=== PATIENT | female | born 1995 | race Caucasian/White ===

== ENCOUNTER 2018-08-21 18:45 | Inpatient (IN) ==
[2018-08-21 18:36] LABS: Basophils % 0.3 %; Eosinophils % 0.2 %; Hematocrit 35.5 % (35.3-44.9); Hemoglobin 12.3 g/dL (11.5-15.4); Immature Granulocytes % 0.7 % (0-4); Lymphocytes # 1.9 K/mcL (0.6-4.6); Lymphocytes % 12.9 %; Mean Corpuscular HGB Conc 34.6 g/dL (31.6-35.5); Mean Corpuscular Hemoglobin 29.9 pg (28.0-33.3); Mean Corpuscular Volume 86.2 fL (83.0-100.0); Mean Platelet Volume 10.4 fL (9.4-12.4); Monocytes % 6.4 %; Neutrophils # 11.8 K/mcL (1.6-8.9); Platelet Count 250 K/mcL (140-400); Red Blood Count 4.12 M/mcL (3.82-4.97); Segmented Neutrophils % 79.5 %
[~2018-08-21 18:45] MED LIST: *HR* Nalbuphine 10 MG/ML AMPUL IVP PRN; Famotidine 20 MG/2 ML VIAL IVP PRN; Naloxone 0.4 MG/ML INJ IVP PRN; Ondansetron 4 MG/2 ML VIAL IVP PRN; Ringers Solution, Lactated 1,000 ML IVC SCH
--- NOTE | 2018-08-21 18:52 | OB/GYN History & Physical ---
Date of Encounter: 08/21/18 Time of Encounter: 18:48 Assessment and Plan (1) 40 weeks gestation of Current visit: Yes Status: Acute admitted for delivery will augment labor if necessary Dr. Harrison aware of POC (2) Spontaneous rupture of membranes Current visit: Yes Status: Acute GBS Negative History of Present Illness Chief complaint: SROM HPI: Ms. Zavaleta is a 23 year old female at 40w2d presents to labor and delivery with complaints of SROM at 1525. Patient reports clear fluid and irregular con tractions with good movement. Patient denies any vaginal bleeding. Patient was a late transfer of care to the [facility]wives from [place]. Patient did have adequate care. Blood type: O positive Rubella: Immune Hep B: nonreactive GBS: Negative Past Med Surg Social Fam HX - Past Medical History Source: patient Medical history: no medical history Psychiatric history: no psych history - Past Surgical History Surgical History: other Additional surgical history: cyst removal - Social History Smoking Status: Never smoker Smokeless Tobacco Status: No Alcohol use: none Drug use: none Current living situation: Home - Independent Obstetrical History - Pregnancies : 1 Para: 0 Term: 0 : 0 Ab's: 0 Livin Medications and Allergies Acetaminophen [Tylenol] 325 mg PO Q6HR PRN 08/21/18 [History] Hair Skin Nails-Biotin Gummies 1 tab PO DAILY 08/21/18 [History] One-A-Day 1 Dha Sfgl 1 tab PO DAILY 08/21/18 [History] Allergy/AdvReac Type Severity Reaction Status Date / Time No Known Allergies Allergy Verified 08/21/18 18:21 Review of System OB - Constitutional Constitutional ROS IM: no chills, no fever(s), no headache(s) - Cardiovascular Cardiovascular: no chest pain, no leg edema, no lightheadedness, no palpitations, no pedal edema - Respiratory Respiratory: no dyspnea - Gastrointestinal Gastrointestinal: no constipation, no heartburn, no nausea, no vomiting - Genitourinary Genitourinary: no abnormal vaginal bleeding, no dysuria, no flank pain, no urinary urgency, no vaginal odor, no vaginal pruritis Exam - Constitutional Constitutional: well developed, well nourished, no acute distress, average body habitus - HEENT HEENT: Normocephaly, Mucus Membranes Moist - Neck Neck exam: full ROM, supple - Lungs Respiratory exam: CTAB - Cardiovascular Cardiovascular exam: RRR, +S1, +S2 - Abdomen Abdomen: Present: bowel sounds normal, gravid, non tender - Extremities Extremities exam: full ROM, normal capillary refill Deep Tendon Reflex Grade: 2+ Normal - Cervix Dilation: 2 Effacement: 90 Station: -1 - Uterus Uterus exam: Present: normal size, normal contour - Anus/Rectum Anus/Rectum: Present: normal perianal skin - Comments Comments: FHR 125 bpm moderate variability +15x15 accels late decel noted after patient returned for bathroom contractions 1.5-3 min apart. SVE, IUPC placed without difficulty, IV bolus infusing, O2 mask applied. Dr. Harrison updated on patient status. Results Result Diagrams: 08/21/18 18:03 Abnormal lab results WBC 14.8 K/mcL (4.3-11.1) H 08/21/18 18:03 Neutrophils # 11.8 K/mcL (1.6-8.9) H 08/21/18 18:03 All other labs normal. - VTE Reasons for not Prescribing Prophylaxis: Treatment not Indicated - Low risk for VTE
[2018-08-21 19:52] LABS: Amphetamine Screen,Urine Negative ng/mL (Cutoff=1000); Barbiturate Screen,Urine Negative ng/mL (Cutoff=200); Benzodiazepines Screen,Urine Negative ng/mL (Cutoff=200); Cannabinoid Screen,Urine Negative ng/mL (Cutoff = 50); Cocaine Screen,Urine Negative ng/mL (Cutoff= 300); Opiate Screen,Urine Negative ng/mL (Cutoff=300); Phencyclidine Screen,Urine Negative ng/mL (Cutoff=25)
[2018-08-21] MEDS ORDERED: miSOPROStol 25 MCG TABLET PO SCH (20:00)
[2018-08-21] MEDS ORDERED: Epidural Premix (fent/bupiv) 110 ML EP SCH (20:45)
--- NOTE | 2018-08-21 21:33 | Anesthesia Evaluation PreOp ---
Date of Encounter: 08/21/18 Time of Encounter: 20:56 - Past History Planned Operation: elder Cardiac History: Denies any Significant Hx Pulmonary History: Denies Any Significant HX REFORMATORY ATTENDANT History: Denies Any Significant HX Other Medical History: Denies Any Significant HX Anesthesia History: No Prior Anesthetic Complications : Yes Alcohol Use: none Drug use: none Medications and Allergies Acetaminophen [Tylenol] 325 mg PO Q6HR PRN 08/21/18 [History] Hair Skin Nails-Biotin Gummies 1 tab PO DAILY 08/21/18 [History] One-A-Day 1 Dha Sfgl 1 tab PO DAILY 08/21/18 [History] Allergy/AdvReac Type Severity Reaction Status Date / Time No Known Allergies Allergy Verified 08/21/18 18:21 - Meds/Allergy Pre-op Review Medications Reviewed: Yes Allergies Reviewed: Yes Beta Blockers on Current Med List: No Anesthesia Results - Labs 08/21/18 18:03 Anesthesia Exam 147/67 88 16 Height: 1.5 Weight: 68 NPO (# of Hours): mn Pain Scale: 7 - HEENT Pupil (Motor): Pupils equal Mallampati: II Teeth: Normal Oral Opening: Greater than 3 - REFORMATORY ATTENDANT LOC: Oriented REFORMATORY ATTENDANT Motor: Normal RUE, Normal LUE, Normal RLE, Normal LLE, Normal Face REFORMATORY ATTENDANT Sensory: Normal: RUE, LUE, RLE, LLE, Face - Cardiac Rhythm: Regular Murmur: None JVD: No Carotid Bruit: No - Pulmonary Breath Sounds: bilateral Clear Respiratory Effort: Symmetrical Anesthesia Assess/Plan ASA Score: 2 Level of consciousness: Cooperative Anesthetic Plan: Epidural
--- NOTE | 2018-08-21 21:37 | Anesthesia Procedures ---
Addendum entered and electronically signed by Cait Hanks CRNA 08/22/18 06:28: Delivery Date: 08/22/18 Delivery Time: 03:56 Original Note: Date of Encounter: 08/21/18 Time of Encounter: 20:56 Procedures: Anesthesia - Epidural/Spinal Patient ID/Chart reviewed: Yes Patient examined: Yes OB Eval: Gestational age: 40.2 OB Eval: : 1 OB Eval: Hx Para: 0 OB Eval: Contractions: Non-stressed pattern Consent Obtained: Yes Supplemental Oxygen: None/Room Air Site Prep: Aseptic Technique, Sterile prep and drape, Povidone-Iodine 1% Patient position: upright Amount of Local Anesthetic used: 3 Touhy Needle Gauge: 18 Touhy Needle Depth (cm): 8 Catheter Depth at Skin (cm): 8 Test Dose (1.5% Lido + Epi): Volume given (mls): 3 Test Dose Result: Negative Infusion Rate (mls/hr): [address]: Tegaderm, Tape Interspace Used: L4-L5 Loss of Resistance (ZAY): Yes Blood: No CSF: No Paresthesia: No Vitals + FHT's: cath 2118 test dose 2120 bolus 2125 147/67 101.4 16 tolerated procedure well no complications noted
[2018-08-21] MEDS ORDERED: Bupivacaine/EPI 1:200k 0.25%PF 10 ML VIAL INFILT ONE (23:35)
[2018-08-21] MEDS ORDERED: Lidocaine/EPI 1:200k 2% PF 20 ML VIAL ONE (23:36)
--- NOTE | 2018-08-22 00:54 | Anesthesia Procedures ---
Date of Encounter: 08/22/18 Time of Encounter: 23:45 Procedures: Anesthesia - Epidural/Spinal Patient ID/Chart reviewed: Yes Patient examined: Yes OB Eval: Gestational age: 40 OB Eval: : 1 OB Eval: Hx Para: 0 OB Eval: Contractions: Non-stressed pattern Consent Obtained: Yes Site Prep: Aseptic Technique, Sterile prep and drape, 0.5% Chlorhexidine/Alcohol Patient position: upright Local Anesthetic: other (ROPIVACIANE 0.2%) Amount of Local Anesthetic used: 5 Touhy Needle Gauge: 18 (SINGLE ATTEMPT) Touhy Needle Depth (cm): 8 Catheter Depth at Skin (cm): 13 Test Dose (1.5% Lido + Epi): Volume given (mls): 5 Test Dose Result: Negative Loading Dose Administered: Thru Catheter Infusion Med: 0.125% Bupivacaine w/ 2 mcg/ml Fentanyl Infusion Rate (mls/hr): [address]: Tegaderm Interspace Used: L3-L4 Loss of Resistance (ZAY): Yes Blood: No CSF: No Paresthesia: No Vitals + FHT's: PATIENT WITH EPIDURAL PLACED EARLIER. REPORTS PAIN 10/10, NOT RESPONDING TO BLOUS, CATHETER WITHDRAWAL & ANOTHER BOLUS. PATIENT AGREES TO REPEAT EPIDURAL PLACEMENT. VITAL SIGNS MONITORED, REVIEWED AND RECORDED ON OB FLOW SHEET.
[2018-08-22] MEDS ORDERED: Oxytocin 20 units/ LR 1000 mL 20 UNIT/1,000 ML BAG IVC ONE (02:50)
--- NOTE | 2018-08-22 04:35 | OB Labor Progress Note ---
Date of Encounter: 08/22/18 Time of Encounter: 03:20 Labor Progress Note - Subjective Subjective: Called to patient's bedside patient reports pain 10/10 feeling pressure - Cervix Cervix: 10/100/0 - Heart Tones Heart Tones: 135 bpm moderate variability early and late decels noted - [place]: 1.5-2.5 min apart - Interventions Interventions: SVE, Dr. Harrison notified of strip and called to room for evaluation - Plan Physician notified: Yes Physician notified details: Dr. Harrison at bedside, Discussed use of vacuum to assist with delivery. Dr. Harrison to resume care of patient at this time. Plan: Dr. Harrison resumed care of patient vacuum assisted delivery
--- NOTE | 2018-08-22 04:41 | OB/GYN Procedure Note ---
Delivery - Delivery Date: 08/22/18 Provider: Alexi Harrison Delivery induction: none Delivery monitor: external FHT, internal uterine Anesthesia: local, epidural Quantitated Blood Loss: 150 - (s) Infant A Delivery Date: 08/22/18 Delivery Time: 03:56 Presentation: vertex Position: AMAN Route of delivery: vacuum extraction Gender: Male Viability: Viable Pounds: 7 Ounces: 1 at 1 minute: 3 at 5 mins: 7 Shoulder Dystocia: not encountered Specimens collected: cord blood Placenta: spontaneous Cord: nuchal cord, 3 umbilical vessels - Disposition Mom disposition: stable in LDR disposition: stable in LDR - Comments Comments: 23-year-old 1 now para 1 female presented at 40 weeks and 3 days gestation in labor and eventually reach complete dilatation. She had been late transfer of care because her outside doctor had discussed possible section for suspected large for gestational age the patient strongly desired vaginal delivery. Patient did progress along appropriate labor curve and reached complete dilatation +2 station however then begin having recurrent decelerations. Because of this decision was made to place a vacuum to [facility]. With 2 vacuum attempt efforts and good maternal effort was delivered from right occiput anterior presentation. weight was found to be 7 lbs. 1 oz. Apgars were 3 at 1 minute and 75 minutes. With spontaneous deliver three-vessel cord which was intact. there is a left labial tear approximately 2 cm in length which was repaired with several interrupted 3-0 vicryl sutures was also left anterior labial tear that was repaired with 3 simple interrupted 3-0 vicryl sutures. this point blood loss 150 ml mother and infant recovered in labor and delivery
[2018-08-22] MEDS ORDERED: Acetaminophen 325 MG TABLET PO PRN (04:49)
[2018-08-22] MEDS ORDERED: Benzocaine/Menthol 56 GM AEROSOL SPRAY TP PRN (04:49)
[2018-08-22] MEDS ORDERED: Lanolin 7 G OINT...G. TP PRN (04:49)
[2018-08-22] MEDS: Ibuprofen 600 MG TABLET PO PRN ×2 (06:24→19:47)
[2018-08-22] MEDS: *HR* HYDROcodone/Acet 5/325 mg TABLET PO PRN ×2 (07:29→17:44)
[2018-08-22] MEDS: Oxytocin 20 units/ LR 1000 mL 20 UNIT/1,000 ML BAG IVC SCH (07:30)
[2018-08-23] MEDS: *HR* HYDROcodone/Acet 5/325 mg TABLET PO PRN (06:30)
[2018-08-23] MEDS: Prenatal Vit/FA 1 EACH TABLET PO SCH (08:32)
--- NOTE | 2018-08-23 15:22 | OB/GYN Progress Note ---
Date of Encounter: 08/23/18 Time of Encounter: 15:20 - Assessment and Plan (1) 40 weeks gestation of Current Visit: Yes Status: Acute 23yo PPD#1 from Continue to progress toward milestones. Will continue to monitor patient overnight with plans for DC to home tomorrow. MD KIMBERLY Subjective - Subjective Principal diagnosis: Interval history: 23yo s/p at term. Attempted to see patient this AM but patient was in nursery. Unable to see patient. Per RN team, patient doing well. Patient reports: appetite normal, voiding normally, pain well controlled [place]: doing well Objective - Latest Vital Signs Latest vital signs: Vital Signs Temp Pulse Resp BP Pulse Ox 08/23/18 09:00 97.4 F L 93 16 104/67 97 08/23/18 05:00 98.4 F 86 14 103/71 98 08/22/18 19:52 97.9 F 90 14 108/65 100 08/22/18 16:09 98.3 F 87 16 107/64 08/22/18 16:00 16 Intake and Output 08/22/18 08/23/18 08/23/18 23:59 07:59 15:59 Intake Total 300 / 300 400 / 400 Output Total 1800 / 1800 750 / 750 Balance -1500 / -1500 -350 / -350 Intake: Oral 300 / 300 400 / 400 Output: Urine 1800 / 1800 750 / 750 Other: Meal Lunch Percent of Meal Consumed 100% Weight 84.822 kg Patient Weight 08/23/18 23:59 Weight 84.822 kg - Exam Extremities: Present: normal Abdomen: Present: normal appearance, soft, gravid Uterus: Present: normal, firm
[2018-08-23] MEDS: Ibuprofen 600 MG TABLET PO PRN ×2 (15:41→21:32)
[2018-08-24] MEDS: Prenatal Vit/FA 1 EACH TABLET PO SCH ×2 (08:21→08:22)
[2018-08-24] MEDS: Ibuprofen 600 MG TABLET PO PRN (08:22)
[2018-08-24 08:36] VITALS: BP 120/80
[2018-08-24] MEDS: Oxytocin 20 units/ LR 1000 mL 20 UNIT/1,000 ML BAG IVC SCH (10:36)
--- NOTE | 2018-08-24 10:44 | Discharge Summary ---
Date of Encounter: 08/24/18 Time of Encounter: 10:42 - Discharge Diagnosis (1) Vaginal delivery Priority: Primary Status: Acute Comments: Feeling well Tolerating regular diet Pain well-controlled with by mouth pain meds Ambulating independently Voiding independently Lochia light Passing flatus, no BM yet Vital signs stable Discharge home today (2) Breast feeding status of mother Priority: Secondary Status: Acute Comments: Community resources provided - Discharge Medications Prescriptions: New Ondansetron HCl [Zofran] 4 mg PO Q8HR PRN 10 Days #15 tab PRN Reason: Nausea Ibuprofen 200 mg PO PRN PRN 10 Days #30 tablet PRN Reason: Pain Ibuprofen [Motrin] 600 mg PO Q6HR PRN #30 tablet PRN Reason: Cramping Benzocaine/Menthol Argyle [Dermoplast Argyle] 1 appl TP QID PRN aerosol PRN Reason: See Comments Docusate [Colace] 100 mg PO BID #30 capsule Lanolin [Lansinoh] 1 appl TP TID PRN oint...g. PRN Reason: Sore Nipples Continue Acetaminophen [Tylenol] 325 mg PO Q6HR PRN PRN Reason: Pain One-A-Day 1 Dha Sfgl 1 tab PO DAILY Hair Skin Nails-Biotin Gummies 1 tab PO DAILY Home Medications: Acetaminophen [Tylenol] 325 mg PO Q6HR PRN 08/21/18 [History] Hair Skin Nails-Biotin Gummies 1 tab PO DAILY 08/21/18 [History] One-A-Day 1 Dha Sfgl 1 tab PO DAILY 08/21/18 [History] Ibuprofen 200 mg PO PRN PRN 10 Days #30 tablet 08/23/18 [Rx] Ondansetron HCl [Zofran] 4 mg PO Q8HR PRN 10 Days #15 tab 08/23/18 [Rx] Benzocaine/Menthol Argyle [Dermoplast Argyle] 1 appl TP QID PRN aerosol 08/24/18 [Rx] Docusate [Colace] 100 mg PO BID #30 capsule 08/24/18 [Rx] Ibuprofen [Motrin] 600 mg PO Q6HR PRN #30 tablet 08/24/18 [Rx] Lanolin [Lansinoh] 1 appl TP TID PRN oint...g. 08/24/18 [Rx] Allergies/Adverse Reactions: Allergy/AdvReac Type Severity Reaction Status Date / Time No Known Allergies Allergy Verified 08/21/18 18:21 Data Procedures and tests throughout hospitalization: Laboratory Tests 08/21/18 08/21/18 18:03 19:12 WBC 14.8 H RBC 4.12 Hgb 12.3 Hct 35.5 MCV 86.2 MCH 29.9 MCHC 34.6 RDW 13.0 Plt Count 250 MPV 10.4 Immature Gran % 0.7 Seg Neutrophils % 79.5 Lymphocytes % 12.9 Monocytes % 6.4 Eosinophils % 0.2 Basophils % 0.3 Neutrophils # 11.8 H Lymphocytes # 1.9 Monocytes # 1.0 Eosinophils # 0.0 Basophils # 0.0 Urine Opiates Screen Negative Ur Barbiturates Screen Negative Ur Phencyclidine Scrn Negative Ur Amphetamines Screen Negative U Benzodiazepines Scrn Negative Urine Cocaine Screen Negative U Marijuana (THC) Screen Negative Ur Drug Screen Interp See Below Date of admission: 08/21/18 18:45 Primary care physician: PCP NONE Consults: 08/22/18 04:49 Consult to Environmental Education Specialist [CONS] Routine Comment: Vaginal delivery, consult needed Discharging clinician: Thu Ocampo Anticipated date of discharge: 08/24/18 - Patient Status Disposition: Home, Self-Care Condition: Good Functional capacity at discharge: independent ambulation Overall status at discharge: patient is progressing back to baseline - Discharge Instructions Follow Up With: NONE,PCP [Primary Care Provider] - Thu Ocampo [Advanced Practice Nurse] - - Diet and Activity Activity: increase activity as tolerated Diet: regular diet Hospital Course Reason for admission: IUP at term, ROM Delivery: Episiotomy: none Laceration: other (labial) Other procedures: none complications: none Discharge diagnosis: IUP at term delivered baby: male Time Attestation: Total time spent providing and/or coordinating discharge services: Time Spent: Less than 30 minutes Exam - Constitutional Vitals: Temp Pulse Resp BP Pulse Ox 97.9 F 87 18 120/80 100 08/24/18 08:31 08/24/18 08:31 08/24/18 08:31 08/24/18 08:31 08/24/18 08:31 General appearance IM: A&O X 3 - Respiratory Respiratory exam: Present: CTAB - Cardiovascular Cardiovascular exam IM: Present: RRR, +S1, +S2 - GI/Abdominal GI/Abdominal exam IM: normal bowel sounds, no peritoneal signs - Rectal Rectal exam: deferred - Uterine Tone: Firm Uterus Position: At Umbilicus, Midline - Extremities Exam Extremities exam IM: Present: normal capillary refill, normal inspection, radial pulses palpable and symmetrical - Neurological Exam Neurological exam: alert, CN II-XII intact, normal gait, oriented X3, reflexes normal, no focal deficits, strengths equal and symetr throughout - Psychiatric Additional comments: Signs and symptoms of depression discussed with patient and she verbalizes understanding of when to seek help - Skin Additional comments: Breasts: Soft, nontender; nipples intact without erythema
== END 2018-08-24 16:00 | disposition home or self-care (01) | DRG 807 ==
LOC: 1NENULAB → 1NENUOBS 08-22 07:51
PROVIDERS: ADMIT Advanced Practice Midwife; ATTEND Advanced Practice Midwife

== ENCOUNTER 2020-08-02 01:10 | Inpatient (IN) ==
[~2020-08-02 01:10] MED LIST changes: +*HR* Nalbuphine 10 MG/ML AMPUL IV PRN; -*HR* Nalbuphine 10 MG/ML AMPUL IVP PRN; +Azithromycin 500 MG in 0.9 % Sodium Chloride 250 ML IVPB ONE; +Lidocaine 1% 20 ML MDV INFILT PRN; +Metoclopramide 10 MG/2 ML VIAL IVP PRN; -Ringers Solution, Lactated 1,000 ML IVC SCH
[2020-08-02 01:25] LABS: Basophils % 0.2 %; Eosinophils # 0.1 K/mcL (0.0-0.6); Eosinophils % 0.6 %; Hematocrit 34.2 % (35.3-44.9); Hemoglobin 11.9 g/dL (11.5-15.4); Immature Granulocytes % 1.6 % (0-4); Lymphocytes # 2.8 K/mcL (0.6-4.6); Lymphocytes % 20.6 %; Mean Corpuscular HGB Conc 34.8 g/dL (31.6-35.5); Mean Corpuscular Hemoglobin 30.1 pg (28.0-33.3); Mean Corpuscular Volume 86.4 fL (83.0-100.0); Mean Platelet Volume 10.9 fL (9.4-12.4); Monocytes # 0.9 K/mcL (0.0-1.3); Monocytes % 6.8 %; Neutrophils # 9.7 K/mcL (1.6-8.9); Platelet Count 210 K/mcL (140-400); Red Blood Count 3.96 M/mcL (3.82-4.97); Segmented Neutrophils % 70.2 %; White Blood Count 13.8 K/mcL (4.3-11.1)
[2020-08-02 01:34] LABS: Amphetamine Screen,Urine Negative ng/mL (Cutoff=1000); Barbiturate Screen,Urine Negative ng/mL (Cutoff=200); Benzodiazepines Screen,Urine Negative ng/mL (Cutoff=200); Cannabinoid Screen,Urine Negative ng/mL (Cutoff = 50); Cocaine Screen,Urine Negative ng/mL (Cutoff= 300); Opiate Screen,Urine Negative ng/mL (Cutoff=300); Phencyclidine Screen,Urine Negative ng/mL (Cutoff=25)
[2020-08-02] MEDS ORDERED: Ringers Solution, Lactated 1,000 ML ONE ×2 (05:54→07:09)
[2020-08-02] MEDS ORDERED: Ropivacaine/PF 0.2% 20 ML VIAL EP ONE (06:35)
[2020-08-02] MEDS ORDERED: EPHEDrine 50 MG/ML VIAL IVP PRN (06:35)
[2020-08-02] MEDS ORDERED: Ondansetron 4 MG/2 ML VIAL IVP PRN (06:35)
[2020-08-02] MEDS ORDERED: Naloxone 0.4 MG/ML INJ IVP PRN (06:35)
[2020-08-02] MEDS ORDERED: Epidural Premix (fent/bupiv) 110 ML EP SCH (06:45)
[2020-08-02] MEDS ORDERED: 0.9 % Sodium Chloride 500 ML ONE (10:19)
[2020-08-02] MEDS ORDERED: Oxytocin 20 units/ LR 1000 mL 20 UNIT/1,000 ML BAG IVC SCH ×2 (10:30→13:32)
[2020-08-02] MEDS ORDERED: 0.9 % Sodium Chloride 250 ML ONE (11:15)
[2020-08-02] MEDS ORDERED: Lanolin 7 G OINT...G. TP PRN (13:32)
[2020-08-02] MEDS ORDERED: Benzocaine/Menthol 56 GM AEROSOL SPRAY TP PRN (13:32)
[2020-08-02] MEDS: Acetaminophen 325 MG TABLET PO PRN ×2 (15:27→22:18)
[2020-08-02] MEDS: Ibuprofen 600 MG TABLET PO PRN ×2 (15:27→22:17)
[2020-08-03 05:02] LABS: Basophils % 0.2 %; Eosinophils % 0.2 %; Hematocrit 30.9 % (35.3-44.9); Hemoglobin 10.5 g/dL (11.5-15.4); Immature Granulocytes % 1.2 % (0-4); Lymphocytes # 2.4 K/mcL (0.6-4.6); Lymphocytes % 14.7 %; Mean Corpuscular Hemoglobin 30.6 pg (28.0-33.3); Mean Corpuscular Volume 90.1 fL (83.0-100.0); Mean Platelet Volume 10.8 fL (9.4-12.4); Monocytes # 1.2 K/mcL (0.0-1.3); Monocytes % 7.3 %; Neutrophils # 12.5 K/mcL (1.6-8.9); Platelet Count 166 K/mcL (140-400); Red Blood Count 3.43 M/mcL (3.82-4.97); Red Cell Distribution Width 13.4 % (11.5-14.5); Segmented Neutrophils % 76.4 %; White Blood Count 16.3 K/mcL (4.3-11.1)
[2020-08-03] MEDS: Ibuprofen 600 MG TABLET PO PRN (05:45)
[2020-08-03 08:25] VITALS: BP 125/92
[2020-08-03] MEDS ORDERED: Prenatal Vit/FA 1 EACH TABLET PO SCH (09:00)
== END 2020-08-03 15:57 | disposition home or self-care (01) | DRG 807 ==
LOC: 1NENULAB → 1NENUOBS 15:01
PROVIDERS: ADMIT Advanced Practice Midwife; ATTEND Advanced Practice Midwife